=== PATIENT | male | born 1950 | race Caucasian/White ===

== ENCOUNTER 2024-08-30 16:23 | Emergency (ER) | payer BC, OTHER ==
[2024-08-30 17:08] LABS: MEAN PLATELET VOLUME 8.3 fL (6.7-11.0); PLATELET COUNT,PLT 221 x10(3)uL (117-477); RED BLOOD CELL COUNT 4.69 x10(6)uL (3.90-5.90); RED CELL DISTRIBUTION WIDTH 12.8 % (12.4-15.0); WHITE BLOOD CELL COUNT,WBC 7.0 x10-3/uL (3.2-10.1)
[2024-08-30 17:11] LABS: BLOOD UREA NITROGEN,BUN 22 mg/dL (7-18); CARBON DIOXIDE,CO2 23 mmol/L (21-32); CHLORIDE,CL 99 mmol/L (100-110); CREATININE 1.3 mg/dL (0.70-1.30); ESTIMATED GFR 57 mL/min (>60); GLUCOSE RANDOM 165 mg/dL (80-116); POTASSIUM,K 3.5 mmol/L (3.5-5.3); SODIUM,NA 134 mmol/L (135-145)
[2024-08-30 17:16] LABS: BAND PERCENT MAN 2 % (0-6); LYMPHOCYTES PERCENT MAN 6 % (13-37); MONOCYTES PERCENT MAN 8 % (4-12); SEG NEUTROPHILS PERCENT MAN 84 % (46-82)
[2024-08-30] MEDS: Ondansetron 4 MG/2 ML SDV IVPUSH ONE (17:17)
[2024-08-30] MEDS: Atropine/Diphenoxylate 0.025-2.5 MG Tab PO ONE (17:17)
[2024-08-30] MEDS: Sodium Chloride 0.9% 10 ML Syringe FLUSH PRN (17:18)
== END 2024-08-30 18:45 | disposition home or self-care (01) ==
LOC: FB.ED 16:23
DX: A08.4 Viral intestinal infection, unspecified (principal); E78.00 Pure hypercholesterolemia, unspecified; I10 Essential (primary) hypertension; Z79.899 Other long term (current) drug therapy; Z79.84 Long term (current) use of oral hypoglycemic drugs; Z90.49 Acquired absence of other specified parts of digestive tract; Z87.891 Personal history of nicotine dependence
CPT/HCPCS: 36415; 80048; 85025; 96361; 96374; 99284; A9270; J2405; J7030